=== PATIENT | female | born 1995 | race Caucasian/White ===

== ENCOUNTER → 2018-07-16 | Emergency (ER) | payer OTHER ==
[~2018-07-16] VITALS: Ht 152.4 cm; Wt 74.8 kg
[~2018-07-16] MED LIST: MOBIC15 MG PO; NORFLEX100MG PO; PHENERGAN25 MG PO; SYNTHROID50 MCG
== END | disposition left against medical advice (07) ==
LOC: ER 19:50
DX: G44.209 Tension-type headache, unspecified, not intractable (principal)